=== PATIENT | female | born 1950 | race Caucasian/White ===

== ENCOUNTER 2024-04-24 10:16 | Emergency (ER) | payer MEDICARE, OTHER, SELFPAY ==
[2024-04-24 10:28] VITALS: BP 150/72; PULSE 62; RESP 20; TEMP 36.4; O2SAT 100
--- NOTE | 2024-04-24 10:52 | ED.LOWEXIN ---
HPI - Extremity Injury (Lower) General Chief Complaint: Extremity Injury, Lower Stated Complaint: Left Ankle Injury Time Seen by Provider: 04/24/24 10:42 Source: patient, RN notes reviewed and old records reviewed Mode of arrival: ambulatory Limitations: no limitations History of Present Illness HPI Narrative: 74 year old female who presents to [facility] with complaints of avulsion wound to the distal posterior aspect of her left lower leg which occurred on Wednesday when a small tree limb fell on her leg. Patient reports that she has been cleansing the wound with antibacterial soap and applying LUCIE and a band-aide over wound. Patient reports concern for swelling of ankle and left foot. Patient has full ROM noted of left ankle and foot with no pain to area voiced no obvious deformity. Patient reports that her tetanus is not up to date. MD complaint: other (avulsion wound left posterior leg with some swelling) Onset (ago): day(s) (3) Type of Injury: blunt Place: street/outdoors Severity scale (1-10): 4 Treatments prior to arrival: bandage and other (cleansing) Related Data Home Medications Medication Instructions Recorded Confirmed escitalopram oxalate 10 mg tablet mg 04/24/24 Allergies Allergy/AdvReac Type Severity Reaction Status Date / Time No Known Allergies Allergy Unverified 03/08/17 13:24 Review of Systems Review of Systems: CONSTITUTIONAL: Denies fever, chills, or sweats. EYES: Denies visual changes, redness, or discharge. ENT: Denies rhinorrhea, congestion, sore throat, or otalgia. CARDIOVASCULAR: Denies chest pain, palpitations, or edema. RESPIRATORY: Denies cough or dyspnea. GASTROINTESTINAL: Denies abdominal pain, nausea, vomiting, or diarrhea. GENITOURINARY: Denies dysuria or hematuria. SKIN: Denies rash or itching,positive for avulsion type of wound to left distal posterior lower leg with minimal surrounding redness but some swelling of left ankle and foot with full ROM noted. MUSCULOSKELETAL: Denies back pain, joint pain, or myalgia. NEUROLOGIC: Denies headache, numbness, or weakness. PSYCHIATRIC: Positive for history of anxiety or depression. All systems reviewed & are unremarkable except as noted in HPI and below PMFSH Past Medical History Medical History (Updated 04/25/24 @ 09:28 by Nancy Lopez NP) Anxiety TMJ (temporomandibular joint syndrome) Surgical History Surgical History (Updated 04/25/24 @ 09:04 by Nancy Lopez NP) History of colon resection adenoma Social History Social History (Updated 04/25/24 @ 09:05 by Nancy Lopez NP) Smoking status: Never smoker Alcohol intake: current Alcohol use details: social Substance use type: does not use Occupation/Education: retired Additional occupation/education comments: nurse practitioner Gender identity (if verbalized by the patient): Female Comments At time of signature, agree with nursing past medical, surgical, social and family history. There is no relevant family history pertinent to the presenting complaint Exam Narrative: GENERAL: Well-appearing, well-nourished, and in no acute distress. HEAD: Normocephalic, atraumatic. EYES: PERRLA and EOMI. ENT: Nares clear, no rhinorrhea or epistaxis. Mucous membranes moist. NECK: Supple.no lymphadenopathy CHEST: Clear to auscultation. No respiratory distress.SAO2 100% on room air HEART: Regular rate and rhythm. No murmur heard. Normal peripheral pulses. ABDOMEN: Soft, nontender, nondistended, normal active bowel sounds. EXTREMITIES: Normal range of motion.Trace edema to left ankle and foot, strong pedal pulse, full ROM of left ankle and foot SKIN: Warm, dry, no rash. Patient has 1cm X 1cm avulsion type of wound to left lower posterior distal leg with minimal redness around wound no drainage noted. NEURO: No focal deficits. Alert and oriented x3. Course Course Emergency Course: Patient is aware of diagnosis, understands and agrees to treatment nancy
[2024-04-24] MEDS: TETANUS,DIPHTHERIA,AC PERTUSSIS ADULT (0.5 ML) BOOSTRIX IM (11:23)
== END 2024-04-24 11:27 | disposition home or self-care (01) ==
PROVIDERS: Emergency Provider Registered Nurse; PCP Internal Medicine
DX: S81.802A Unspecified open wound, left lower leg, initial encounter (principal); L03.116 Cellulitis of left lower limb; W20.8XXA Other cause of strike by thrown, projected or falling object, initial encounter; Z23 Encounter for immunization
CPT/HCPCS: 90471; 90715; 99203; G0463